=== PATIENT | female | born 1980 | race Caucasian/White ===

== ENCOUNTER 2020-05-27 14:49 | Emergency (ER) | payer OTHER ==
[~2020-05-27 14:49] MED LIST: LODINE CAP 300300 MG PO
== END 2020-05-27 16:20 | disposition left against medical advice (07) ==
LOC: ER1 14:49
DX: Z53.21 Procedure and treatment not carried out due to patient leaving prior to being seen by health care provider (principal)

== ENCOUNTER 2021-09-30 00:38 | Emergency (ER) | payer OTHER | END 2021-09-30 04:35 | disposition home or self-care (01) | LOC: ER1 00:38 | DX: M79.674 Pain in right toe(s) (principal); Z90.89 Acquired absence of other organs; Z90.710 Acquired absence of both cervix and uterus; Z88.5 Allergy status to narcotic agent | CPT/HCPCS: 99283 ==